=== PATIENT | female | born 1965 | race Caucasian/White ===

== ENCOUNTER 2016-10-20 11:14 | Emergency (ER) | payer BC ==
[~2016-10-20] VITALS: Ht 167.6 cm; Wt 63.5 kg
--- NOTE | 2016-10-20 11:14 | NUR ---
Placed on setup operator, blood pressure machine and pulse oximeter. To gown for exam. Side rails up.
[2016-10-20 11:16] VITALS: BP 156/69; PULSE 90; RESP 20; TEMP 97.4; O2SAT 96
--- NOTE | 2016-10-20 11:18 | NUR ---
Patient to ER bed 6 to gown for evaluation. Side rails up. Report given to Sherlyn MAY.
--- NOTE | 2016-10-20 11:57 | NUR ---
ER at bedside examining patient.
[2016-10-20 12:14] LABS: BASOPHILS % (AUTO) 0.2 % (0.0-2.0); EOSINOPHILS # (AUTO) 0.1 K/uL (0.0-0.4); EOSINOPHILS % (AUTO) 1.2 % (0.0-4.0); HEMATOCRIT 35.9 % (36-48); HEMOGLOBIN 11.7 g/dL (12.0-16.0); LYMPHOCYTES # (AUTO) 1.5 K/uL (1.0-5.5); LYMPHOCYTES % (AUTO) 14.1 % (20.5-51.5); MEAN CORPUSCULAR HEMOGLOBIN 28 pg (27-31); MEAN CORPUSCULAR HGB CONC 33 % (32-36); MEAN CORPUSCULAR VOLUME 85 fL (79.0-98.0); MONOCYTES # (AUTO) 0.6 K/uL (0.0-1.0); MONOCYTES % (AUTO) 5.1 % (1.7-9.3); NEUTROPHILS # (AUTO) 8.8 K/uL (1.8-7.7); NEUTROPHILS % (AUTO) 79.4 % (40.0-70.0); PLATELET COUNT (AUTO) 265 K/uL (130-430); RED BLOOD CELL COUNT(AUTO) 4.22 MIL/uL (4.2-6.2); RED CELL DISTRIBUTION WIDTH 13.2 % (9.0-15.0)
[2016-10-20 12:26] LABS: PROTHROMBIN TIME 10.9 SECS (9.5-12.5)
[2016-10-20 12:43] LABS: CALCIUM 7.7 mg/dL (8.4-11.0); CREATININE 0.63 mg/dL (0.55-1.30); POTASSIUM 3.4 mmol/L (3.5-5.1)
[2016-10-20 12:48] LABS: ALBUMIN 2.9 g/dL (3.4-4.8); TOTAL BILIRUBIN 0.2 mg/dL (0.0-1.0); TOTAL PROTEIN, SERUM 6.6 g/dL (6.4-8.3)
[2016-10-20] MEDS ORDERED: methylPREDNISolone SOD SUCC/PF 62.5 MG/ML VIAL IVP ONE (13:00)
[2016-10-20] MEDS ORDERED: POTASSIUM CHLORIDE 20 MEQ TAB.PRT.SR PO ONE (13:00)
[2016-10-20 13:05] LABS: BILIRUBIN,URINE NEGATIVE (NEGATIVE); BLOOD, URINE NEGATIVE (NEGATIVE); CLARITY/URINE CLEAR (CLEAR); COLOR,URINE YELLOW (YELLOW); GLUCOSE,URINE NEGATIVE (NEGATIVE); KETONES,URINE NEGATIVE (NEGATIVE); LEUKOCYTE ESTERASE ,URINE NEGATIVE (NEGATIVE); NITRITE, URINE NEGATIVE (NEGATIVE); PROTEIN URINE NEGATIVE (NEGATIVE); UROBILINOGEN,URINE 0.2 (0.2-1.0)
[2016-10-20] MEDS ORDERED: DIPHENHYDRAMINE HCL 50 MG CAPSULE PO ONE (13:30)
--- NOTE | 2016-10-20 14:15 | NUR ---
Patient given written and verbal discharge instructions and verbalizes understanding. ER MD discussed with patient the results and treatment provided. Patient in stable condition. ID arm band removed. IV catheter removed intact and dressing applied, no active bleeding. Rx of prednisone and benadryl given. Patient educated on pain management and to follow up with PMD. Pain Scale 0/10. Opportunity for questions provided and answered.
[2016-10-20 15:09] VITALS: BP 156/69; PULSE 90; RESP 20; TEMP 97.4; O2SAT 96
== END 2016-10-20 14:15 | disposition home or self-care (01) ==
LOC: SED 11:14
DX: R22.0 Localized swelling, mass and lump, head (principal); T50.905A Adverse effect of unspecified drugs, medicaments and biological substances, initial encounter; Y92.89 Other specified places as the place of occurrence of the external cause
CPT/HCPCS: 36415; 71010; 80053; 81003; 83880; 84484; 85025; 85610; 93005; 96374; 99285; J2930; Q0163